=== PATIENT | female | born 1980 | race Two or more races ===

== ENCOUNTER 2019-11-30 05:30 | Day surgery (SDC) | payer OTHER ==
[~2019-11-30 05:30] MED LIST: ACIDO FOLICO; ANAPROX275 MG PO; OBTREX PRENATAL1 TAB PO
[2019-11-30] MEDS ORDERED: DOXYCYCLINE HY100 M2 PO (10:19)
[2019-11-30] MEDS ORDERED: Tylenol #3 PO (10:19)
== END 2019-11-30 16:30 | disposition home or self-care (01) ==
LOC: CIR.AMB 05:30
DX: D25.0 Submucous leiomyoma of uterus (principal); N84.0 Polyp of corpus uteri